=== PATIENT | female | born 1975 | race Caucasian/White ===

== ENCOUNTER 2023-01-13 05:47 | Day surgery (SDC) | payer OTHER, SELFPAY ==
[2022-12-30 14:22] VITALS: BMI 24.2
[2023-01-13] VITALS (17 sets, daily range): BP systolic 111–130; BP diastolic 65–87; PULSE 66–93; RESP 11–20; TEMP 36.5; O2SAT 94–100; BMI 24.0
[2023-01-13] MEDS: LACTATED RINGERS 1,000 ML 30 ML IV CONT ×2 (06:30→10:20)
--- NOTE | 2023-01-13 06:47 | P.OP_ITS ---
Procedure Note - Detailed Date of Procedure 01/13/23 Pre-op Diagnosis Breast Ptosis Post-op Diagnosis Same Procedure Performed Bilateral mastopexy with Galaflex Surgeon Kuldip Stahl MD Anesthesia General Findings Inverted T Superior pedicle Galaflex Lot# [id number] Description of Procedure She is here today for bilateral breast mastopexy. Previously and again today the risks, benefits, alternatives were discussed in extensive detail. I wanted her to be very realistic about the risks involved as well as expectations. We discussed aftercare and what to monitor for. Made sure answered all of her questions to her satisfaction today and consent was obtained. Marked in the preoperative holding area with their verification. The patient was taken to the operating room placed supine on the operating table. Anesthesia was provided by anesthesiology. A surgical time-out was taken. She was prepped and draped in a standard sterile fashion. 1% lidocaine and 0.25% Marcaine with epi was used to provide a field block bilateral. The breast was tailor tacked into place. I tailor tacked the breast into position. Placed her in a sitting position. Verified the nipple-areolar location based on preoperative planning as well as intraoperative observations and measurements in full agreement. She was placed supine. I de-epithelialized the pedicle. I then de-epithelialized the inferior breast tissue to create an autoaugmentation flap based on intercostal computer repair instructor. I elevated medial and lateral tissue flaps as well for planned closure. The autoaugmentation flap was sutured to the chest wall with 2-0 PDS. Galaflex was soaking in betadine solution on the back table. It was trimmed to fit and sutured into place with 3-0 Vicryl. I closed along the IMF with 2-0 Stratafix. Along the vertical with 2-0 PDS. I closed around the Timmy with 3-0 strata fix. 3-0 Monocryl along the vertical. 3-0 Stratafix along the IMF. I finally closed everything with running subcuticular 4-0 Monocryl and tissue glue. Fluffs and surgical bra were placed. Estimated Blood Loss 50 Drains No Packing No Pathology None sent Complications No immediate complications Condition Stable Disposition PACU
--- NOTE | 2023-01-13 06:47 | WPDHPUPDATE1 ---
History and Physical Update Update Date/Time: 01/13/23 06:47 History and Physical has been reviewed, including an updated exam of the patient. There are NO changes in the patient's condition. Risks, benefits, and alternatives have been discussed and questions answered. Patient agrees to proceed with procedure.
--- NOTE | 2023-01-13 06:49 | WPDANESEPPF ---
Anes - Initial Pre Proc Eval Procedure: Operation Date: 01/13/23 07:30 Proposed Procedures p Bilateral Breast Mastopexy with Galaflex Placement - Kuldip Stahl MD Date/Time: 01/13/23 06:49 Surgeon: Kuldip Stahl MD Pre Op Diagnosis: Breast Ptosis Patient Data Age: 47 Gender: F Height: 1.68 m Weight: 67.4 kg Last Vital Signs Temp 36.5 C 01/13/23 06:37 Pulse 66 01/13/23 06:37 Resp 16 01/13/23 06:37 BP 130/83 01/13/23 06:37 Pulse Ox 100 01/13/23 06:37 O2 Del Method Room Air 01/13/23 06:37 Allergies Allergy/AdvReac Type Severity Reaction Status Date / Time No Known Allergies Allergy Verified 01/13/23 06:23 Home Medications Medication Instructions Recorded Confirmed Type multivitamin 1 tablet PO DAILY 09/14/21 01/13/23 History Patient hx anesthesia problems: none Family hx anesthesia problems: none Results Review: All pre-operative results and documents have been reviewed as part of the pre-operative evaluation. [facility] Past Medical History Medical History (Updated 10/12/22 @ 15:02 by SALVATORE Lu) Screening mammogram, encounter for Surgical History Surgical History H/O rotator cuff surgery 01/20/19 rt shoulder H/O tubal ligation 2006 History of endometrial ablation 01/28/13 h/s d&c w/endo ablation History of suburethral sling procedure 01/20/18 Family History Family History Father Family history of heart disease in male family member before age 55 Patient's father is Cerebrovascular accident Hypertension Grandparent Carcinoma of colon Family history of malignant neoplasm of breast Mother Family history of diabetes mellitus in first degree relative Hypertension Sibling Carcinoma of colon sister Other Family history of arthritis Social History Social History (Updated 09/14/21 @ 16:26 by SALVATORE Lu) Smoking status: Never smoker Second hand tobacco smoke exposure: No Alcohol intake: current Drinks per week: 1 Alcohol use details: occasional Substance use: never Substance use type: does not use Living arrangements: with family Additional living arrangements comments: spouse Occupation/Education: occupation 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 Gender identity (if verbalized by the patient): Female Sexual Orientation (if Verbalized by the Patient): Straight or Heterosexual Spiritual care concerns: No Anes - Eval Final PreProcedure Day of Procedure 01/13/23 06:49 Patient weight: normal Heart: regular rate and rhythm Lungs: clear to auscultation Airway: Mallampati scale class II Neurological: alert and oriented Last oral intake: >/= 8 hours ASA classification: II Emergent: no Anesthetic plan: proceed Anesthesia type and monitoring: general LMA and standard monitoring Results Review: All pre-operative results and documents have been reviewed as part of the pre-operative evaluation. Informed Consent: The patient's anesthetic plan and its attendant risks and benefits were discussed with the patient/family/POA. Questions were solicited and answers provided to the satisfaction of the patient/family/POA.
--- NOTE | 2023-01-13 06:54 | SUR.PREOP ---
500CC IVF BOLUS STARTED PER ORDER.
--- NOTE | 2023-01-13 07:11 | SUR.PREOP ---
DR JACK MARKED PT IN ROOM. FEMALE STAFF AND SPOUSE IN ROOM
[2023-01-13] MEDS: SCOPOLAMINE 1.5 MG PATCH TRANSDERM (07:19)
[2023-01-13] MEDS: ceFAZolin SODIUM 2 GM/20 ML SW SYRINGE IV PUSH (07:26)
[2023-01-13] MEDS: TRANEXAMIC ACID 1,000 MG/10 ML AMPUL 1000 MG IV PUSH (07:28)
[2023-01-13] MEDS: LIDO 1%/EPINEPHRINE 1:100,000 50 ML VIAL 30 ML INFILTRATE (08:02)
[2023-01-13] MEDS: NACL 0.9% IRRIG POUR BOTTLE 900 ML, GENTAMICIN SULFATE INJ 160 MG, ceFAZolin 2 GM, POVI... IRRIGATION (08:08)
[2023-01-13] MEDS: fentaNYL CITRATE INJ (*CRX) 100 MCG/2 ML VIAL 25 MCG IV PUSH ×4 (10:26→11:28)
[2023-01-13] MEDS: ONDANSETRON INJ 4 MG/2 ML VIAL IV PUSH (10:27)
[2023-01-13] MEDS: diphenhydrAMINE HCl INJ 50 MG/ML VIAL 25 MG IV PUSH (11:09)
[2023-01-13] MEDS: PROMETHAZINE HCL 25 MG/ML AMPUL 12.5 MG IV PUSH (11:44)
[2023-01-13] MEDS: oxyCODONE HCL (*CRX) 5 MG TAB IR PO (13:05)
--- NOTE | 2023-01-13 13:30 | SUR.PHASEII ---
1315-patient remains at pain level 4 and nauseated see list of medications administered - patient resting on stretcher comfortably - skin tone pink-respirations even- states she is ready to go home- will proceed with discharge per pt request
--- NOTE | 2023-01-13 16:20 | WPDANESPN ---
Anes - Prog Note Post-Op Date/Time: 01/13/23 16:20 Cardiovascular status: normal Respiratory status: normal Airway patency: baseline Mental status: baseline Post-Op hydration status: normal Vital Signs: Last Vital Signs Temp 36.5 C 01/13/23 10:12 Pulse 82 01/13/23 13:20 Resp 15 01/13/23 13:20 BP 121/73 01/13/23 13:20 Pulse Ox 100 01/13/23 13:20 O2 Del Method Room Air 01/13/23 13:20 O2 Flow Rate 10 01/13/23 10:22 Pain Score (VAS): 2 I/O: Intake & Output 01/13/23 01/13/23 01/13/23 07:59 15:59 23:59 Intake Total 500 1000 Balance 500 1000 Post-procedural complaints: none Patient Feedback: Patient satisfied with anesthetic care. Other Findings: Patient vital signs back to baseline. Patient denies nausea and vomiting. Patient's pain under control. Patient OK for discharge.
== END 2023-01-13 13:30 | disposition home or self-care (01) ==
PROVIDERS: PCP Nurse Practitioner; Visit Provider Surgery Plastic and Reconstructive Surgery
PROC: (CPT 19316; principal; 2023-01-13 07:30)
DX: N64.81 Ptosis of breast (principal)
CPT/HCPCS: 19316

== ENCOUNTER 2025-01-31 14:56 | Outpatient (CLI) | payer OTHER, SELFPAY ==
--- NOTE | ~2025-01-31 | MM_ITS ---
EXAMINATION: MM screening vidal BI w l[facility] HISTORY: Screening TECHNIQUE: Craniocaudal and mediolateral oblique 3-D tomosynthesis images were obtained and synthetic 2-D images were generated. CAD analysis was submitted and interpreted. COMPARISON: No prior mammogram is available for comparison at this institution. BREAST PARENCHYMAL COMPOSITION: Dense: The breasts are extremely dense, which lowers the sensitivity of mammography. FINDINGS: There is no evidence of suspicious mass, calcification, or architectural distortion to sugg est malignancy in either breast. There has been no suspicious interval change. IMPRESSION: 1. No mammographic evidence of malignancy. 2. Recommend routine screening mammography in one year. BI-RADS Category 1: Negative Reviewed, dictated and finalized at location B.
== END 2025-01-31 14:57 | disposition home or self-care (01) ==
LOC: MICIMG 14:56
PROVIDERS: PCP Nurse Practitioner; Visit Provider Obstetrics & Gynecology
DX: Z12.31 Encounter for screening mammogram for malignant neoplasm of breast (principal)
CPT/HCPCS: 77063; 77067